=== PATIENT | female | born 1990 | race Caucasian/White ===

== ENCOUNTER 2021-02-14 14:13 | Inpatient (IN) | payer OTHER ==
[~2021-02-14] VITALS: Ht 170.2 cm; Wt 99.8 kg
[2021-02-14 15:39] LABS: HEMOGLOBIN 12.4 gm/dl (12.3-15.3); RED BLOOD COUNT 4.13 M/UL (4.00-5.10); WHITE BLOOD COUNT 18.6 K/UL (4.5-11.0)
[2021-02-15] MEDS ORDERED: HEMOCYTE324 MG PO (01:34)
[2021-02-15] MEDS ORDERED: PERCOCET 5/325 T1 EA PO (01:34)
[2021-02-15] MEDS ORDERED: IBUPROFEN800 MG PO (01:34)
[2021-02-15] MEDS ORDERED: COLACE100 MG PO (01:34)
[2021-02-16 06:46] LABS: HEMOGLOBIN 10.7 gm/dl (12.3-15.3)
== END 2021-02-16 12:22 | disposition home or self-care (01) | DRG 788 ==
LOC: GENOP 14:13 → OB 15:19
PROVIDERS: ADMIT Obstetrics & Gynecology
PROC: 4A1HXCZ Monitoring of Products of Conception, Cardiac Rate, External Approach (ICD-10-PCS; 2021-02-14)
PROC: 3E0234Z Introduction of Serum, Toxoid and Vaccine into Muscle, Percutaneous Approach (ICD-10-PCS; 2021-02-15)
PROC: 10D00Z1 Extraction of Products of Conception, Low, Open Approach (ICD-10-PCS; principal; 2021-02-15 00:38)
DX: O42.92 Full-term premature rupture of membranes, unspecified as to length of time between rupture and onset of labor (principal); Z20.822 Contact with and (suspected) exposure to COVID-19; Z3A.39 39 weeks gestation of pregnancy; Z37.0 Single live birth; Z88.8 Allergy status to other drugs, medicaments and biological substances; Z90.49 Acquired absence of other specified parts of digestive tract; O99.334 Smoking (tobacco) complicating childbirth; F17.210 Nicotine dependence, cigarettes, uncomplicated; O76 Abnormality in fetal heart rate and rhythm complicating labor and delivery; Z23 Encounter for immunization
CPT/HCPCS: 36415; 82800; 83518; 85014; 85018; 85025; 90471; 90707; 90715; C9113; J0595; J0690; J1170; J1580; J1885; J2370; J2590; J2704; J2795; J7120; U0002